=== PATIENT | male | born 1955 | race Asian ===

== ENCOUNTER 2017-03-06 10:27 | Inpatient (IN) | payer MEDICARE ==
[~2017-03-06] VITALS: Ht 172.7 cm; Wt 77.2 kg
[2017-03-06] MEDS ORDERED: LIPI10 PO (11:33)
[2017-03-06] MEDS ORDERED: LOSARTAN POTASS50 M1 PO (11:34)
[2017-03-06 11:54] LABS: BASOPHIL % 0.4 % (0-2); PLATELET COUNT 283 x10^3mcL (130-400); RED CELL DISTRIBUTION WIDTH 12.4 % (11.5-14.5)
[2017-03-06 12:03] LABS: CALCIUM 9.4 mg/dL (8.5-10.1); CARBON DIOXIDE 22.7 mmol/L (21-32); CHLORIDE SERUM 103 mmol/L (98-107); CREATININE SERUM 1.1 mg/dL (0.7-1.3); GFR1 > 60 mL/min; GLUCOSE SERUM 139 mg/dL (74-106); POTASSIUM SERUM 3.5 mmol/L (3.5-5.1); SODIUM SERUM 140 mmol/L (136-145)
[2017-03-06 12:08] LABS: ALBUMIN 4.1 g/dL (3.4-5.0); ALKALINE PHOSPHATASE 76 U/L (46-116); ALT/SGPT 43 U/L (16-63); AST/SGOT 22 U/L (15-37); BILIRUBIN TOTAL 0.89 mg/dL (0.20-1.00); TOTAL PROTEIN, SERUM 8.2 g/dL (6.4-8.2)
[2017-03-06 14:01] LABS: CHOLESTEROL/HDL RATIO 2.9; MAGNESIUM 1.8 mg/dL (1.8-2.4)
[2017-03-06 14:07] LABS: T3 TOTAL 1.03 ng/mL
[2017-03-06 14:32] LABS: PHOSPHOROUS 0.6 mg/dL (2.5-4.9)
[2017-03-06 14:33] VITALS: BP 158/83
[2017-03-06 14:39] VITALS: Ht 172.7 cm; Wt 77.2 kg
[2017-03-06 15:10] LABS: FREE T4 1.46 ng/dL (0.76-1.46); FREE THYROXINE INDEX 4.1 ug/dL (1.4-4.5); T4(THYROXINE) 10.7 ug/dL (4.7-13.3)
[2017-03-06 16:34] VITALS: BP 149/84
[2017-03-06 19:25] VITALS: BP 128/80
[2017-03-06 21:46] VITALS: BP 122/67
[2017-03-07 02:37] LABS: PLATELET COUNT 248 x10^3mcL (130-400); RED CELL DISTRIBUTION WIDTH 11.8 % (11.5-14.5)
[2017-03-07 02:39] LABS: CALCIUM 8.6 mg/dL (8.5-10.1); CARBON DIOXIDE 28.4 mmol/L (21-32); CHLORIDE SERUM 106 mmol/L (98-107); GFR1 > 60 mL/min; GLUCOSE SERUM 104 mg/dL (74-106); MAGNESIUM 2.1 mg/dL (1.8-2.4); PHOSPHOROUS 4.4 mg/dL (2.5-4.9); POTASSIUM SERUM 3.8 mmol/L (3.5-5.1); SODIUM SERUM 138 mmol/L (136-145)
[2017-03-07 02:44] LABS: BASOPHIL % 6.1 % (0-2)
[2017-03-07 05:31] VITALS: BP 105/69
[2017-03-07 06:45] LABS: microscopic required? NO
[2017-03-07 07:14] LABS: UA SPECIFIC GRAVITY 1.025 (1.005-1.035); urine erythrocyte NEGATIVE (NEGATIVE)
[2017-03-07 07:51] LABS: AMPHETAMINE QUAL UR NONE DETECTED (NEG <=1000)
[2017-03-07] MEDS ORDERED: BETIMOL5 M1 OU (08:57)
[2017-03-07 09:15] VITALS: BP 123/67
[2017-03-07 11:59] VITALS: BP 123/66
[2017-03-07 17:08] VITALS: BP 134/59
[2017-03-07 22:10] VITALS: BP 104/57
[2017-03-08] MEDS ORDERED: NIT0.4 SL (05:36)
[2017-03-08] MEDS ORDERED: METOPROLOL TART25 M1 PO (05:38)
[2017-03-08 05:43] VITALS: BP 112/66
[2017-03-08 07:54] VITALS: BP 112/66
[2017-03-08 08:24] VITALS: BP 110/60
[2017-03-08 09:03] LABS: calcium (part of PTHIC) 10.3 mg/dL (8.6-10.2)
[2017-03-08] MEDS ORDERED: ASPIR 8181 MG PO (10:10)
== END 2017-03-08 11:03 | disposition home or self-care (01) | DRG 303 ==
LOC: EDBD 10:27 → ED 10:27 → DU 13:22
PROVIDERS: Emergency Medicine; ADMIT Family Medicine Sports Medicine
DX: I25.9 Chronic ischemic heart disease, unspecified (principal); E16.0 Drug-induced hypoglycemia without coma; I10 Essential (primary) hypertension; R73.03 Prediabetes; E83.39 Other disorders of phosphorus metabolism; E78.00 Pure hypercholesterolemia, unspecified; I07.1 Rheumatic tricuspid insufficiency; I37.1 Nonrheumatic pulmonary valve insufficiency; Z68.28 Body mass index [BMI] 28.0-28.9, adult
CPT/HCPCS: 82962; 83880; 84439; J7030